=== PATIENT | female | born 2000 | race African-American/Black ===

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

== ENCOUNTER 2022-03-14 01:13 | Emergency (ER) | payer OTHER ==
[2022-03-14 01:21] VITALS: BP 106/72; PULSE 84; RESP 18; TEMP 98.1; BMI 32.8
== END 2022-03-14 02:26 | disposition home or self-care (01) ==
LOC: JER 01:13
DX: S09.90XA Unspecified injury of head, initial encounter (principal); J34.89 Other specified disorders of nose and nasal sinuses; W01.0XXA Fall on same level from slipping, tripping and stumbling without subsequent striking against object, initial encounter
CPT/HCPCS: 99281-25

== ENCOUNTER 2022-03-14 18:06 | Emergency (ER) | payer OTHER ==
[2022-03-14 18:21] VITALS: BP 113/72; PULSE 89; RESP 18; TEMP 98.2; BMI 25.0
== END 2022-03-14 20:09 | disposition home or self-care (01) ==
LOC: JERFT 18:06
DX: R04.0 Epistaxis (principal)
CPT/HCPCS: 99283-25